=== PATIENT | male | born 1980 | race Caucasian/White ===

== ENCOUNTER 2019-06-17 18:13 | Emergency (ER) | payer OTHER, SELFPAY ==
[2019-06-17] MEDS ORDERED: HYDROcodone/Acetaminophen 10/325 mg Tablet ONE (19:14)
[2019-06-17] MEDS ORDERED: Cyclobenzaprine 10 MG TAB ONE (19:14)
[2019-06-17] MEDS ORDERED: Lorazepam 1 MG TAB ONE (21:38)
--- NOTE | 2019-06-17 22:57 | MRI ---
MRI cervical spine noncontrast HISTORY: Neck pain. FINDINGS: Straightening of the normal lordotic curvature. Vertebral body heights and alignment are ma intained. Bone marrow signal within normal limits. C2-3, C3-4, C4-5: Normal. C5-6: Posterior disc herniation with inferior extension. Effacement of the ventral aspect of the thec al sac. Greater to the left of midline with effacement of the left side of the spinal cord. No abnormal signal within the cord. Osteophytosis of the facets. Mild right and moderate to severe left foraminal stenoses. C6-7: Posterior disc protrusion with superior extension. Greater to the right of midline with effacem ent of the right ventral aspect of the thecal sac and spinal cord. Slight flattening of the cord. No abnormal signal. Neural foramina remain patent. C7-T1: Normal. IMPRESSION: Disc protrusion/herniation at the C5-6 and C6-7 levels. Slight compression of the spinal cord without evidence of myelomalacia. Foraminal stenoses present at the C5-6 level.
--- NOTE | 2019-06-17 22:59 | MRI ---
MRI thoracic spine noncontrast HISTORY: Back pain. FINDINGS: Vertebral body heights and alignment are maintained. Bone marrow signal within normal limit s. Spinal cord has a normal appearance. Minimal disc bulge at the T8-9 level. No significant compromise of the central canal or neural forami na. IMPRESSION: Minimal disc bulge T8-9 level. No focal nerve root compression.
== END 2019-06-17 23:32 | disposition home or self-care (01) ==
LOC: ERS 18:13
DX: M50.223 Other cervical disc displacement at C6-C7 level (principal); W01.0XXA Fall on same level from slipping, tripping and stumbling without subsequent striking against object, initial encounter
CPT/HCPCS: 72141; 72146